=== PATIENT | female | born 1975 | race Caucasian/White ===

== ENCOUNTER → 2017-04-25 | Outpatient (REF) | payer MEDICAID, OTHER ==
[2017-04-25 16:09] LABS: MEAN CORPUSCULAR HEMOGLOBIN 27.7 pg (27.0-33.0); MEAN CORPUSCULAR HGB CONC 32.8 g/dl (32.0-36.5); MEAN CORPUSCULAR VOLUME 84.5 fl (80.0-96.0); RED CELL DISTRIBUTION WIDTH 13.7 % (11.5-14.5); WHITE BLOOD COUNT 4.8 K/mm3 (4.0-10.0)
[2017-04-25 16:34] LABS: BASOPHILS 1 % (0-4); EOSINOPHILS 1 % (0-5)
[2017-04-25 16:42] LABS: ERYTHROCYTE SEDIMENTATION RATE 19 mm/hr (0-20)
== END ==
LOC: M LABDRAW1 15:44
PROVIDERS: ATTEND Orthopaedic Surgery
DX: M25.562 Pain in left knee (principal)

== ENCOUNTER → 2020-01-21 | Outpatient (CLI) | payer OTHER ==
--- NOTE | 2020-02-05 07:30 | REP ---
Clinical: Lower extremity edema and . Technique: Hooker scale and color Doppler evaluation of the bilateral lower extremities using linear high frequency transducer including reflux evaluation . Findings: Ultrasound examination of the right and left lower extremity deep venous structures from the common femoral vein to the popliteal vein demonstrates normal compressibility flow and wave patterns in response to respiration and augmentation. There is no evidence for deep venous thrombosis. Right lower extremity demonstrates reflux through the superficial system. Proximal greater saphenous vein measures 6 mm diameter with reflux duration 4 seconds; the mid greater saphenous vein measures 6 mm diameter with reflux duration 7 seconds; distal greater saphenous vein measures 5 mm diameter with reflux duration 6 seconds. Anterior accessory greater saphenous vein demonstrates reflux duration 5 seconds. Reflux also identified within the popliteal vein with the bed tipped in Trendelenburg position. Left lower extremity demonstrates only minimal reflux through the common femoral vein of approximately 2 seconds duration. No reflux noted through the superficial system. Impression: 1. No evidence for deep venous thrombosis. 2. Reflux primarily noted through the right superficial venous system. Electronically Signed by Marcial Clark MD 02/05/2020 07:21 A
== END ==
LOC: M RAD 12:05
PROVIDERS: ATTEND Physician Assistant
DX: R60.9 Edema, unspecified (principal); I87.2 Venous insufficiency (chronic) (peripheral)

== ENCOUNTER → 2020-04-28 | Outpatient (CLI) | payer OTHER | LOC: M RAD 12:39 | PROVIDERS: ATTEND Nurse Practitioner Family | DX: R60.0 Localized edema (principal); Z53.9 Procedure and treatment not carried out, unspecified reason ==

== ENCOUNTER → 2020-07-25 | Outpatient (CLI) | payer OTHER ==
[~2020-07-25] MED LIST: D31000TA2 PO; GABA-843 PO; METO1TAB32 PO
== END ==
LOC: M LABSMTC 10:22
PROVIDERS: ATTEND Anesthesiology
DX: Z01.812 Encounter for preprocedural laboratory examination (principal); Z20.828 Contact with and (suspected) exposure to other viral communicable diseases

== ENCOUNTER 2020-07-28 12:04 | Day surgery (SDC) | payer OTHER ==
[~2020-07-28] VITALS: Ht 167.6 cm; Wt 123.8 kg
[~2020-07-28 12:04] MED LIST changes: +NS 1,000 ML IV ONE
[2020-07-28] MEDS ORDERED: propofoL 500 MG/50 ML VIAL As Ordered ONE (12:05)
[2020-07-28] MEDS ORDERED: LIDOCAINE 2% 100MG/5ML SDV (FOR ANES.) As Ordered ONE (12:05)
[2020-07-28] MEDS ORDERED: fentaNYL 100 MCG/2 ML INJECTION (J3010) As Ordered ONE (12:48)
--- NOTE | 2020-07-28 13:57 | ROOR ---
Patient Name: Madeline Rockwell Procedure Date: 07/28/2020 1:41 PM Date of : 1975 Age: 45 Room: [facility] Gender: Female Note Status: Finalized Procedure: Upper GI endoscopy Indications: Generalized abdominal pain Providers: Haroldo BRIDGES MD Referring MD: Chandni Collins Np Requesting Provider: Medicines: Monitored Anesthesia Care Complications: No immediate complications. Procedure: Pre-Anesthesia Assessment: - The heart rate, respiratory rate, oxygen saturations, blood pressure, adequacy of pulmonary ventilation, and response to care were monitored throughout the procedure. The Endoscope was introduced through the mouth, and advanced to the jejunum. The upper GI endoscopy was accomplished without difficulty. The patient tolerated the procedure well. Findings: The examined esophagus was normal. 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 The gastrojejunal anastomosis was characterized by healthy appearing mucosa. The exam of the stomach was otherwise normal. The examined jejunum was normal. Impression: - Normal esophagus. - Messi-en-Y gastrojejunostomy with gastrojejunal anastomosis characterized by healthy appearing mucosa. - Normal examined jejunum. - The examination was otherwise normal. - No specimens collected. Recommendation: - Observe patient's clinical course. Procedure Code(s): --- Professional --- 76632, Esophagogastroduodenoscopy, flexible, transoral; diagnostic, including collection of specimen(s) by brushing or washing, when performed (separate procedure) Diagnosis Code(s): --- Professional --- R10.84, Generalized abdominal pain Z98.0, Intestinal bypass and anastomosis status CPT copyright 2019 [employer]. All rights reserved. The codes documented in this report are preliminary and upon supervisor metal cans review may be revised to meet current compliance requirements. Haroldo Bridges MD Haroldo BRIDGES MD 07/28/2020 1:56:48 PM Electronically signed by Haroldo BRIDGES MD Number of Addenda: 0 Note Initiated On: 07/28/2020 1:41 PM Estimated Blood Loss: Estimated blood loss: none.
--- NOTE | 2020-07-28 14:27 | ROOR ---
Patient Name: Madeline Rockwell Procedure Date: 07/28/2020 1:43 PM Date of : 1975 Age: 45 Room: [facility] Gender: Female Note Status: Finalized Procedure: Colonoscopy Indications: Abdominal pain Providers: Haroldo BRIDGES MD Referring MD: Chandni Collins Np Requesting Provider: Medicines: Monitored Anesthesia Care Complications: No immediate complications. Procedure: Pre-Anesthesia Assessment: - The heart rate, respiratory rate, oxygen saturations, blood pressure, adequacy of pulmonary ventilation, and response to care were monitored throughout the procedure. The Colonoscope was introduced through the anus and advanced to 10 cm into the ileum. The colonoscopy was performed without difficulty. The patient tolerated the procedure well. The quality of the bowel preparation was good. Findings: The perianal and digital rectal examinations were normal. Two semi-pedunculated polyps were found in the ascending colon. The polyps were 5 to 9 mm in size. These polyps were removed with a cold snare. Resection and retrieval were complete. To prevent bleeding after the polypectomy, three hemostatic clips were successfully placed. Two sessile polyps were found in the recto-sigmoid colon and sigmoid colon. The polyps were diminutive in size. These polyps were removed with a cold snare. Resection and retrieval were complete. Small Internal Hemorrhoids. The terminal ileum appeared normal. Impression: - Two 5 to 9 mm polyps in the ascending colon, removed with a cold snare. Resected and retrieved. Clips were placed. - Two diminutive polyps at the recto-sigmoid colon and in the sigmoid colon, removed with a cold snare. Resected and retrieved. - Small Internal Hemorrhoids. - The colon is otherwise normal. - Cause for abdominal pain not determined. - The examined portion of the ileum was normal. Recommendation: - Telephone endoscopist for pathology results in 2 weeks. - Repeat colonoscopy in 3 - 5 years for surveillance. Procedure Code(s): --- Professional --- 85829, Colonoscopy, flexible; with removal of tumor(s), polyp(s), or other lesion(s) by snare technique Diagnosis Code(s): --- Professional --- R10.9, Unspecified abdominal pain K63.5, Polyp of colon CPT copyright 2019 [employer]. All rights reserved. The codes documented in this report are preliminary and upon hydraulic press tender review may be revised to meet current compliance requirements. Haroldo Bridges MD Haroldo BRIDGES MD 07/28/2020 2:27:18 PM Electronically signed by Haroldo BRIDGES MD Number of Addenda: 0 Note Initiated On: 07/28/2020 1:43 PM Estimated Blood Loss: Estimated blood loss: none.
[2020-07-28 15:00] VITALS: BP 143/80
[2020-07-28] MEDS ORDERED: NS 1,000 ML IV ONE (15:15)
== END 2020-07-28 15:07 | disposition home or self-care (01) ==
LOC: M OPP 12:04
PROVIDERS: ATTEND Internal Medicine Gastroenterology
DX: R10.84 Generalized abdominal pain (principal); K63.5 Polyp of colon; K64.8 Other hemorrhoids; Z98.0 Intestinal bypass and anastomosis status; I10 Essential (primary) hypertension; Z79.891 Long term (current) use of opiate analgesic; Z79.899 Other long term (current) drug therapy; Z88.0 Allergy status to penicillin; Z88.8 Allergy status to other drugs, medicaments and biological substances
CPT/HCPCS: 43235; 45385; 88305; J3010

== ENCOUNTER → 2020-08-10 | Outpatient (CLI) | payer SELFPAY ==
[~2020-08-10] MED LIST changes: -NS 1,000 ML IV ONE
== END ==
LOC: M LABSMTC 14:32
PROVIDERS: ATTEND Pediatrics
DX: Z20.828 Contact with and (suspected) exposure to other viral communicable diseases (principal)

== ENCOUNTER → 2024-01-09 | Outpatient (CLI) | payer BC ==
[~2024-01-09] MED LIST changes: -D31000TA2 PO; +GABA-282 PO; -GABA-843 PO; +VITA100093 PO
[2024-01-09 18:35] LABS: BASO # 0.1 10^3/uL (0.0-0.2); BASO % 0.8 % (0.0-1.0); EOS # 0.1 10^3/uL (0.0-0.5); EOS % 1.9 % (0.0-3.0); HEMATOCRIT 33.2 % (36.0-47.0); LYMPH # 2.1 10^3/uL (1.5-5.0); LYMPH % 27.4 % (24.0-44.0); MEAN CORPUSCULAR HEMOGLOBIN 22.3 pg (27.0-33.0); MEAN CORPUSCULAR HGB CONC 30.1 g/dl (32.0-36.5); MEAN CORPUSCULAR VOLUME 74.1 fl (80.0-96.0); MONO # 0.6 10^3/uL (0.0-0.8); MONO % 7.5 % (2.0-8.0); NEUTROPHILS # 4.6 10^3/uL (1.5-8.5); NEUTROPHILS % 61.9 % (36.0-66.0); PLATELET COUNT, AUTOMATED 385 10^3/uL (150-450); RED BLOOD COUNT 4.48 10^6/uL (4.00-5.40); WHITE BLOOD COUNT 7.5 10^3/uL (4.0-10.0)
[2024-01-09 19:12] LABS: FERRITIN 2.2 NG/ML (7.3-270.7); FOLATE 16.11 NG/ML (>5.4)
== END ==
LOC: M PLALAB 16:19
PROVIDERS: ATTEND Internal Medicine Hematology
DX: I82.90 Acute embolism and thrombosis of unspecified vein (principal); D50.9 Iron deficiency anemia, unspecified

== ENCOUNTER → 2024-04-08 | Outpatient (CLI) | payer BC, SELFPAY ==
[2024-04-10 18:45] LABS: COPPER PLASMA 112 mcg/dL (70-175)
== END ==
LOC: M PLALAB 12:07
PROVIDERS: ATTEND Internal Medicine Hematology
DX: D50.9 Iron deficiency anemia, unspecified (principal); I82.90 Acute embolism and thrombosis of unspecified vein

== ENCOUNTER → 2024-04-09 | Outpatient (CLI) | payer BC, SELFPAY ==
[2024-04-09 10:12] LABS: BASO # 0.1 10^3/uL (0.0-0.2); BASO % 1.3 % (0.0-1.0); EOS # 0.2 10^3/uL (0.0-0.5); EOS % 3.9 % (0.0-3.0); HEMATOCRIT 35.3 % (36.0-47.0); HEMOGLOBIN 10.6 g/dl (12.0-15.5); LYMPH # 1.9 10^3/uL (1.5-5.0); LYMPH % 35.9 % (24.0-44.0); MEAN CORPUSCULAR HEMOGLOBIN 22.2 pg (27.0-33.0); MEAN CORPUSCULAR VOLUME 73.8 fl (80.0-96.0); MONO # 0.6 10^3/uL (0.0-0.8); MONO % 10.4 % (2.0-8.0); NEUTROPHILS # 2.6 10^3/uL (1.5-8.5); NEUTROPHILS % 48.3 % (36.0-66.0); PLATELET COUNT, AUTOMATED 348 10^3/uL (150-450); RED BLOOD COUNT 4.78 10^6/uL (4.00-5.40); WHITE BLOOD COUNT 5.4 10^3/uL (4.0-10.0)
[2024-04-09 10:38] LABS: FERRITIN 2.2 NG/ML (7.3-270.7)
[2024-04-09 10:39] LABS: FOLATE 18.5 NG/ML (>5.4)
== END ==
LOC: M PLALAB 08:44
PROVIDERS: ATTEND Internal Medicine Hematology
DX: D50.9 Iron deficiency anemia, unspecified (principal); I82.90 Acute embolism and thrombosis of unspecified vein

== ENCOUNTER 2024-05-22 11:03 | Outpatient (CLI) | payer BC ==
[~2024-05-22] VITALS: Ht 165.1 cm; Wt 107.7 kg
[~2024-05-22 11:03] MED LIST changes: +ALBUTEROL SULFATE 2.5MG/0.5ML INH NEB SOLN INH PRN; +EPINEPHrine INJ 1 MG/ML 1ML AMP IM PRN; +NS 1,000 ML IV SCH; +diphenhydrAMINE 50MG/ML VIAL IV PRN; +methylPREDNISolone 125MG 2ML VIAL IV PRN
[2024-05-22 11:25] VITALS: BP 127/62; O2SAT 97
[2024-05-22] MEDS: IRON SUCROSE 300 MG in NS 250 ML IV ONE (11:50)
[2024-05-22 13:50] VITALS: BP 155/81; O2SAT 100
== END 2024-05-22 13:50 ==
LOC: M INFU 11:03
PROVIDERS: ATTEND Internal Medicine Hematology
DX: D50.9 Iron deficiency anemia, unspecified (principal); Z88.0 Allergy status to penicillin; Z88.8 Allergy status to other drugs, medicaments and biological substances
CPT/HCPCS: 96365; 96366; J1756

== ENCOUNTER 2024-05-29 11:15 | Outpatient (CLI) | payer BC ==
[~2024-05-29] VITALS: Ht 165.1 cm; Wt 118.0 kg
[2024-05-29 11:15] VITALS: BP 123/60; O2SAT 100
[~2024-05-29 11:15] MED LIST changes: +GABA-1172 PO; -GABA-282 PO; -NS 1,000 ML IV SCH
[2024-05-29] MEDS ORDERED: NS 1,000 ML IV SCH (11:30)
[2024-05-29] MEDS: IRON SUCROSE 300 MG in NS 250 ML OVER 90 MIN. IV ONE (12:13)
[2024-05-29 14:45] VITALS: BP 123/63; O2SAT 100
== END 2024-05-29 15:15 ==
LOC: M INFU 11:15
PROVIDERS: ATTEND Internal Medicine Hematology
DX: D50.9 Iron deficiency anemia, unspecified (principal); Z88.0 Allergy status to penicillin; Z88.8 Allergy status to other drugs, medicaments and biological substances
CPT/HCPCS: 96365; 96366; J1756

== ENCOUNTER 2024-06-05 11:30 | Outpatient (CLI) | payer BC ==
[~2024-06-05] VITALS: Ht 165.1 cm; Wt 103.2 kg
[~2024-06-05 11:30] MED LIST changes: +NS 1,000 ML IV SCH
[2024-06-05 11:38] VITALS: BP 134/76; O2SAT 99
[2024-06-05] MEDS: IRON SUCROSE 300 MG in NS 250 ML OVER 90 MIN. IV ONE (11:54)
[2024-06-05 13:30] VITALS: BP 116/65; O2SAT 99
== END 2024-06-05 13:30 ==
LOC: M INFU 11:30
PROVIDERS: ATTEND Internal Medicine Hematology
DX: D50.9 Iron deficiency anemia, unspecified (principal); Z88.0 Allergy status to penicillin; Z88.8 Allergy status to other drugs, medicaments and biological substances
CPT/HCPCS: 96365; J1756

== ENCOUNTER → 2024-08-29 | Outpatient (CLI) | payer BC ==
[~2024-08-29] MED LIST changes: -ALBUTEROL SULFATE 2.5MG/0.5ML INH NEB SOLN INH PRN; -EPINEPHrine INJ 1 MG/ML 1ML AMP IM PRN; +ISOVUE-370 76% 100ML VIAL As Ordered ONE; -NS 1,000 ML IV SCH; -diphenhydrAMINE 50MG/ML VIAL IV PRN; -methylPREDNISolone 125MG 2ML VIAL IV PRN
== END ==
LOC: M RAD 09:58
PROVIDERS: ATTEND Internal Medicine Hematology
DX: I82.90 Acute embolism and thrombosis of unspecified vein (principal); Z98.84 Bariatric surgery status; Z90.49 Acquired absence of other specified parts of digestive tract; Z90.710 Acquired absence of both cervix and uterus
CPT/HCPCS: 74177; Q9967

== ENCOUNTER 2024-09-16 13:19 | Outpatient (CLI) | payer BC ==
[~2024-09-16] VITALS: Ht 165.1 cm; Wt 103.1 kg
[~2024-09-16 13:19] MED LIST changes: +ALBUTEROL SULFATE 2.5MG/0.5ML INH NEB SOLN INH PRN; +EPINEPHrine INJ 1 MG/ML 1ML AMP IM PRN; -ISOVUE-370 76% 100ML VIAL As Ordered ONE; +diphenhydrAMINE 50MG/ML VIAL IV PRN; +methylPREDNISolone 125MG 2ML VIAL IV PRN
[2024-09-16 14:00] VITALS: BP 138/71; O2SAT 96
[2024-09-16] MEDS: IRON SUCROSE 300 MG in NS 250 ML OVER 90 MIN. IV ONE (14:01)
[2024-09-16 15:55] VITALS: BP 147/72; O2SAT 97
== END 2024-09-16 16:00 ==
LOC: M INFU 13:19
PROVIDERS: ATTEND Internal Medicine Hematology
DX: D50.9 Iron deficiency anemia, unspecified (principal); Z88.0 Allergy status to penicillin; Z88.8 Allergy status to other drugs, medicaments and biological substances
CPT/HCPCS: 96365; 96366; J1756

== ENCOUNTER 2024-10-01 12:30 | Outpatient (CLI) | payer BC ==
[~2024-10-01] VITALS: Ht 165.1 cm; Wt 105.5 kg
[~2024-10-01 12:30] MED LIST changes: +IRON SUCROSE 300 MG in NS 250 ML IV ONE; +IRON SUCROSE 300 MG in NS 250 ML OVER 90 MIN. IV ONE
[2024-10-01 12:42] VITALS: BP 109/59; O2SAT 96
[2024-10-01] MEDS: IRON SUCROSE 300 MG in NS 250 ML OVER 90 MIN. IV ONE (12:54)
[2024-10-01 14:38] VITALS: BP 138/79; O2SAT 96
== END 2024-10-01 14:40 ==
LOC: M INFU 12:30
PROVIDERS: ATTEND Internal Medicine Hematology
DX: D50.9 Iron deficiency anemia, unspecified (principal); Z88.0 Allergy status to penicillin; Z88.8 Allergy status to other drugs, medicaments and biological substances
CPT/HCPCS: 96365; 96366; J1756